=== PATIENT | male | born 1950 | race Caucasian/White ===

== ENCOUNTER 2023-10-18 13:14 | Outpatient (CLI) | payer OTHER ==
[2023-10-18 14:26] LABS: Hematocrit 41.7 % (38.8-50.0); Hemoglobin 14.9 g/dL (13.5-17.5); Mean Corpuscular HGB CONC 35.7 g/dL (32.0-36.0); Mean Corpuscular Hemoglobin 32.6 pg (27.0-33.0); Mean Corpuscular Volume 91.2 fl (81.2-95.1); Mean Platelet Volume 9.3 fl (7.4-10.4); Platelet Count 228 10x3/uL (150-450); RBC Distribution Width 12.5 % (11.5-14.5); Red Blood Cell (RBC) Count 4.57 10x6/uL (4.32-5.72); White Blood Cell (WBC) Count 6.2 10x3/uL (3.5-10.5)
[2023-10-18 14:43] LABS: PTT 27.6 sec (22.0-33.0); Prothrombin Time 10.9 sec (9.5-12.1)
[2023-10-18 14:54] LABS: Anion Gap 13 mmol/L (10-20); BUN (Urea Nitrogen) 16 mg/dL (8.4-25.7); Calc. Creatinine Clearance 0 mL/min (70-130); Calcium 9.4 mg/dL (7.8-10.44); Carbon Dioxide 26 mmol/L (23-31); Chloride 105 mmol/L (98-107); Estimated GFR 83; Glucose 156 mg/dL (83-110); Potassium 4.3 mmol/L (3.5-5.1); Sodium 140 mmol/L (136-145)
[2023-10-18 14:57] LABS: ALT (SGPT) 28 U/L (8-55); AST (SGOT) 18 U/L (5-34); Albumin 3.8 g/dL (3.4-4.8); Alkaline Phosphatase 114 U/L (40-110); Bilirubin, Direct 0.5 mg/dL (0.1-0.3); Bilirubin, Total 1.3 mg/dL (0.2-1.2); Protein, Total 6.7 g/dL (5.8-8.1)
== END 2023-10-18 13:15 | disposition home or self-care (01) ==
LOC: LABBT 13:14
PROVIDERS: ATTEND Neurological Surgery
DX: Z01.818 Encounter for other preprocedural examination (principal); M47.12 Other spondylosis with myelopathy, cervical region
CPT/HCPCS: 80048; 80076; 85027; 85610; 85730; 93005; 93010

== ENCOUNTER 2023-10-18 13:30 | Inpatient (IN) | payer OTHER ==
[2023-10-18 13:45] VITALS: BMI 33.1
[2023-10-25] MEDS ORDERED: PROPOFOL 20 ML ONE (09:45)
[2023-10-25] MEDS ORDERED: CEFAZOLIN 2 GM VIAL ONE (10:54)
[2023-10-25] MEDS ORDERED: fentaNYL PF 100 MCG/2 ML SYRINGE ONE (10:54)
[2023-10-25] MEDS ORDERED: Sodium Chloride 0.9% 100 ML ONE (10:54)
[2023-10-25] MEDS ORDERED: PROPOFOL 200 MG/20 ML VIAL ONE (11:10)
[2023-10-25] MEDS ORDERED: Ketorolac Tromethamine 30 MG/ML VIAL ONE ×2 (11:10→11:32)
[2023-10-25] MEDS ORDERED: Dexamethasone 20 MG/5 ML VIAL ONE (11:10)
[2023-10-25] MEDS ORDERED: Rocuronium Bromide 10 MG/ML (10ML VIAL) ONE (11:10)
[2023-10-25] MEDS ORDERED: PHENYLEPHRINE-NS 100 MCG/ML 10 ML SYRINGE ONE ×2 (11:10→12:04)
[2023-10-25] MEDS ORDERED: Ondansetron PF 4 MG/2 ML Vial ONE ×2 (11:10→11:29)
[2023-10-25] MEDS ORDERED: SUGAMMADEX SODIUM 200 MG/2 ML VIAL ONE (11:32)
[2023-10-25] MEDS ORDERED: fentaNYL 50 mcg/mL 1 mL Vial ONE ×3 (11:52→13:42)
[2023-10-25] MEDS ORDERED: Ondansetron HCl/PF 4 MG/2 ML Vial IVP PRN (12:14)
[2023-10-25] MEDS ORDERED: Ondansetron PF 4 MG/2 ML Vial IVP PRN (12:21)
[2023-10-25] MEDS ORDERED: Mag-Al 1200 mg/1200 mg/30 ML UDCUP PO PRN (12:21)
[2023-10-25] MEDS ORDERED: Milk Of Magnesia 30 ML UDCUP PO PRN (12:21)
[2023-10-25] MEDS ORDERED: Acetaminophen 325 MG TAB PO PRN (12:21)
[2023-10-25] MEDS ORDERED: Acetaminophen/Codeine 30-300mg Tablet PO PRN ×2 (12:21)
[2023-10-25] MEDS ORDERED: Morphine 2 MG/ML VIAL SLOW IVP PRN (12:21)
[2023-10-25] MEDS ORDERED: Cyclobenzaprine 10 MG TAB PO PRN (12:21)
[2023-10-25] MEDS ORDERED: diphenhydrAMINE 50 MG/ML VIAL IVP PRN (12:21)
[2023-10-25] MEDS ORDERED: Promethazine 25 MG TAB PO PRN (12:21)
[2023-10-25] MEDS ORDERED: traMADol HCl 50 MG TAB PO PRN (12:21)
[2023-10-25] MEDS: Sodium Chloride 0.9% 1,000 ML IV SCH (16:35)
[2023-10-25] MEDS ORDERED: Carvedilol 25 MG TAB PO SCH (17:00)
[2023-10-25] MEDS: CEFAZOLIN 2 GM in Sodium Chloride 0.9% 100 ML IVPB SCH (18:11)
[2023-10-25] MEDS: Vit A,C & E/Lutein/Minerals Tablet PO SCH (20:56)
[2023-10-25] MEDS: Carvedilol 25 MG TAB PO SCH (20:58)
[2023-10-25] MEDS: Ketotifen 0.035% Ophth Soln 5 ml Bottle EA EYE SCH (20:58)
[2023-10-25] MEDS: Polyvinyl Alcohol 1.4%/Povidone 0.6% Opth Drops EA EYE SCH (21:00)
[2023-10-25] MEDS ORDERED: Atorvastatin Calcium 20 MG TAB PO SCH (21:00)
[2023-10-25] MEDS ORDERED: Gabapentin 300 MG CAP PO SCH (21:00)
[2023-10-25] MEDS ORDERED: Latanoprost 0.005% Ophth Soln 2.5 ml Bottle EA EYE SCH (21:00)
[2023-10-25] MEDS: Timolol 0.25% Ophth Soln 5 ml Bottle EA EYE SCH (21:01)
[2023-10-26] MEDS: Sodium Chloride 0.9% 1,000 ML IV SCH (02:06)
[2023-10-26] MEDS: CEFAZOLIN 2 GM in Sodium Chloride 0.9% 100 ML IVPB SCH ×2 (02:16→09:22)
[2023-10-26 06:26] VITALS: TEMP 97.8
[2023-10-26 07:55] VITALS: BP 151/76
[2023-10-26] MEDS ORDERED: Potassium Chloride 10 MEQ TAB PO SCH (09:00)
[2023-10-26] MEDS ORDERED: Hydrochlorothiazide 25 MG TAB PO SCH (09:00)
[2023-10-26] MEDS ORDERED: Cholecalciferol 1,000 UNITS (25 MCG) TAB PO SCH (09:00)
[2023-10-26] MEDS ORDERED: Finasteride 5 MG TAB PO SCH (09:00)
[2023-10-26] MEDS ORDERED: Magnesium Oxide 400 MG TAB PO SCH (09:00)
[2023-10-26] MEDS: Carvedilol 25 MG TAB PO SCH (09:22)
[2023-10-26] MEDS: Timolol 0.25% Ophth Soln 5 ml Bottle EA EYE SCH (09:23)
[2023-10-26] MEDS: Vit A,C & E/Lutein/Minerals Tablet PO SCH (09:23)
[2023-10-26] MEDS: Polyvinyl Alcohol 1.4%/Povidone 0.6% Opth Drops EA EYE SCH (09:23)
[2023-10-26] MEDS: Ketotifen 0.035% Ophth Soln 5 ml Bottle EA EYE SCH (09:23)
== END 2023-10-26 11:21 | disposition home or self-care (01) | DRG 473 ==
LOC: SURG A 10-25 07:10
PROVIDERS: ADMIT Neurological Surgery; ATTEND Neurological Surgery
PROC: 0RG20A0 Fusion of 2 or more Cervical Vertebral Joints with Interbody Fusion Device, Anterior Approach, Anterior Column, Open Approach (ICD-10-PCS; principal; 2023-10-25)
PROC: 0RT30ZZ Resection of Cervical Vertebral Disc, Open Approach (ICD-10-PCS; 2023-10-25)
DX: M48.02 Spinal stenosis, cervical region (principal); Z95.0 Presence of cardiac pacemaker; Z98.890 Other specified postprocedural states
CPT/HCPCS: C1713; J1100; J1885; J2405; J2704; J3010; J3490; J7050

== ENCOUNTER 2023-12-13 07:21 | Observation (INO) | payer OTHER ==
[2023-12-13] MEDS ORDERED: CEFAZOLIN 2 GM VIAL ONE (08:41)
[2023-12-13] MEDS ORDERED: Sodium Chloride 0.9% 100 ML ONE (08:41)
[2023-12-13] MEDS ORDERED: Lidocaine 1% MPF 2 ML VIAL ONE (08:59)
[2023-12-13] MEDS ORDERED: Famotidine/PF 20 mg/2ml Vial ONE (09:09)
[2023-12-13] MEDS ORDERED: Midazolam HCl 2 mg/2 ml Vial ONE (09:40)
[2023-12-13] MEDS ORDERED: EPINEPHrine 1 MG/ML VIAL ONE (09:40)
[2023-12-13] MEDS ORDERED: Thrombin 5000 UNITS/5 ML VIAL ONE (09:40)
[2023-12-13] MEDS ORDERED: Milk Of Magnesia 30 ML UDCUP PO PRN (09:41)
[2023-12-13] MEDS ORDERED: traMADol HCl 50 MG TAB PO PRN (09:41)
[2023-12-13] MEDS ORDERED: Promethazine 25 MG TAB PO PRN (09:41)
[2023-12-13] MEDS ORDERED: diphenhydrAMINE 50 MG/ML VIAL IVP PRN (09:41)
[2023-12-13] MEDS ORDERED: Ondansetron PF 4 MG/2 ML Vial IVP PRN (09:41)
[2023-12-13] MEDS ORDERED: Cyclobenzaprine 10 MG TAB PO PRN (09:41)
[2023-12-13] MEDS ORDERED: Morphine 2 MG/ML VIAL SLOW IVP PRN (09:41)
[2023-12-13] MEDS ORDERED: Acetaminophen 325 MG TAB PO PRN (09:41)
[2023-12-13] MEDS ORDERED: HYDROcodone/Acetaminophen 10/325 mg Tablet PO PRN ×2 (09:41)
[2023-12-13] MEDS ORDERED: Bupivacaine PF 0.5% 30 ML VIAL ONE (09:41)
[2023-12-13] MEDS ORDERED: Mag-Al 1200 mg/1200 mg/30 ML UDCUP PO PRN (09:41)
[2023-12-13] MEDS ORDERED: PROPOFOL 40 ML ONE (09:56)
[2023-12-13] MEDS ORDERED: Dexamethasone 4 mg/ml Vial ONE (09:56)
[2023-12-13] MEDS ORDERED: Lidocaine 1% PF 5 ML VIAL ONE (09:56)
[2023-12-13] MEDS ORDERED: Rocuronium Bromide 10 MG/ML (10ML VIAL) ONE (09:56)
[2023-12-13] MEDS ORDERED: Ondansetron PF 4 MG/2 ML Vial ONE (09:56)
[2023-12-13] MEDS ORDERED: SUGAMMADEX SODIUM 200 MG/2 ML VIAL ONE (09:56)
[2023-12-13] MEDS ORDERED: fentaNYL 50 mcg/mL 1 mL Vial ONE ×2 (09:58→12:41)
[2023-12-13] MEDS ORDERED: Tamsulosin HCl 0.4 MG CAP PO SCH (10:15)
[2023-12-13] MEDS ORDERED: ePHEDrine Sulfate 50 MG/10 ML VIAL ONE (10:52)
[2023-12-13] MEDS ORDERED: PHENYLEPHRINE-NS 100 MCG/ML 10 ML SYRINGE ONE (10:52)
[2023-12-13] MEDS ORDERED: Phenylephrine 40 MG/NS 250 ML 250 ML ONE (10:52)
[2023-12-13] MEDS ORDERED: Vancomycin 1 GM VIAL ONE (11:25)
[2023-12-13] MEDS ORDERED: Dexmedetomidine 200 MCG/2 ML VIAL ONE (11:52)
[2023-12-13] MEDS ORDERED: Ondansetron HCl/PF 4 MG/2 ML Vial IVP PRN (12:17)
[2023-12-13] MEDS ORDERED: Promethazine HCl 25 MG/ML VIAL IM PRN (12:17)
[2023-12-13] MEDS ORDERED: Tamsulosin HCl 0.4 MG CAP ONE (12:40)
[2023-12-13] MEDS ORDERED: fentaNYL PF 100 MCG/2 ML SYRINGE ONE (12:55)
[2023-12-13] MEDS: Sodium Chloride 0.9% 1,000 ML IV SCH ×2 (14:00→20:16)
[2023-12-13] MEDS: Carvedilol 25 MG TAB PO SCH (18:02)
[2023-12-13] MEDS: CEFAZOLIN 2 GM in Sodium Chloride 0.9% 100 ML IVPB SCH (18:02)
[2023-12-13] MEDS: Gabapentin 300 MG CAP PO SCH (20:14)
[2023-12-13] MEDS ORDERED: Finasteride 5 MG TAB PO SCH (21:00)
[2023-12-13] MEDS ORDERED: Latanoprost 0.005% Ophth Soln 2.5 ml Bottle EA EYE SCH (21:00)
[2023-12-13] MEDS: Timolol 0.25% Ophth Soln 5 ml Bottle EA EYE SCH (22:17)
[2023-12-14] MEDS: CEFAZOLIN 2 GM in Sodium Chloride 0.9% 100 ML IVPB SCH (01:07)
[2023-12-14] MEDS ORDERED: Tamsulosin HCl 0.4 MG CAP PO SCH (06:00)
[2023-12-14] MEDS: Gabapentin 300 MG CAP PO SCH (08:18)
[2023-12-14] MEDS: Carvedilol 25 MG TAB PO SCH (08:19)
[2023-12-14] MEDS: Timolol 0.25% Ophth Soln 5 ml Bottle EA EYE SCH (08:21)
[2023-12-14] MEDS ORDERED: Hydrochlorothiazide 25 MG TAB PO SCH (09:00)
[2023-12-14 14:58] VITALS: BP 115/65; TEMP 98.1
[2023-12-16] MEDS ORDERED: FLU VACC QS2023(65UP)/MF59C/PF 60 MCG/0.5 ML SYRINGE IM ONE (09:00)
== END 2023-12-14 16:30 | disposition home or self-care (01) ==
LOC: SDC 07:21 → T4-B 09:41
PROVIDERS: ADMIT Neurological Surgery; ATTEND Neurological Surgery
PROC: 01NB0ZZ Release Lumbar Nerve, Open Approach (ICD-10-PCS; principal; 2023-12-13)
DX: M48.061 Spinal stenosis, lumbar region without neurogenic claudication (principal); Z88.8 Allergy status to other drugs, medicaments and biological substances; Z95.0 Presence of cardiac pacemaker
CPT/HCPCS: 36416; J0171; J1100; J2250; J2405; J2704; J3010; J3370; J3490; J7050; S0020; S0028